=== PATIENT | male | born 1975 | race Caucasian/White ===

== ENCOUNTER 2021-02-20 15:33 | Emergency (ER) | payer SELFPAY ==
[~2021-02-20] VITALS: Ht 157.5 cm; Wt 69.0 kg
[2021-02-20] MEDS ORDERED: ACETAMINOPHEN 325MG TABLET PO ONE (18:15)
[2021-02-20] MEDS ORDERED: ONDANSETRON 4MG ODT PO ONE (18:15)
[2021-02-20] MEDS ORDERED: TOPUD PO (18:35)
[2021-02-20] MEDS ORDERED: ONDA4TAB5 PO (18:35)
[2021-02-20 20:00] VITALS: BP 122/78
== END 2021-02-20 20:45 | disposition home or self-care (01) ==
LOC: ER 15:33 → EDBD 15:33 → ER 20:45
DX: U07.1 COVID-19 (principal)
CPT/HCPCS: 71045; 87426; 99284; Q0162

== ENCOUNTER 2021-02-21 16:27 | Emergency (ER) | payer SELFPAY ==
[~2021-02-21] VITALS: Ht 165.1 cm; Wt 64.0 kg
[~2021-02-21 16:27] MED LIST: ONDA4TAB5 PO; TOPUD PO
[2021-02-21 16:32] VITALS: BP 180/100
== END 2021-02-21 18:55 | disposition left against medical advice (07) ==
LOC: ER 16:27
DX: R11.2 Nausea with vomiting, unspecified (principal); Z53.21 Procedure and treatment not carried out due to patient leaving prior to being seen by health care provider

== ENCOUNTER 2021-02-21 17:41 | Emergency (ER) | payer SELFPAY ==
[~2021-02-21] VITALS: Ht 167.6 cm; Wt 67.0 kg
[2021-02-21 17:51] VITALS: BP 106/63
== END 2021-02-21 18:55 | disposition left against medical advice (07) ==
LOC: ER 17:41
DX: R68.89 Other general symptoms and signs (principal); Z53.21 Procedure and treatment not carried out due to patient leaving prior to being seen by health care provider